=== PATIENT | male | born 1940 | race Caucasian/White ===

== ENCOUNTER → 2018-11-13 | Outpatient (CLI) | payer MEDICARE ==
[~2018-11-13] MED LIST: AMLO10TA8 PO; ASPI-496 PO; CARV-39 PO; DOCU-131 PO; METF10002 PO; MULT-658 PO; OMNIPAQUE 350 MG/ML, 100ML BOTTLE ONE; OXYC5CAP2 PO; PRAS10TA4 PO; QUIN40TA15 PO; SIMV40TA3 PO
== END | disposition home or self-care (01) ==
LOC: RAD 14:59
PROVIDERS: ATTEND Surgery
DX: K57.30 Diverticulosis of large intestine without perforation or abscess without bleeding (principal); N28.1 Cyst of kidney, acquired; I71.2 Thoracic aortic aneurysm, without rupture; I72.2 Aneurysm of renal artery; J84.10 Pulmonary fibrosis, unspecified; M31.4 Aortic arch syndrome [Takayasu]
CPT/HCPCS: 71275; 74174; Q9967